=== PATIENT | male | born 1965 | race Caucasian/White ===

== ENCOUNTER 2018-02-25 14:37 | Outpatient (CLI) | payer BC, SELFPAY ==
--- NOTE | 2018-02-25 14:52 | DI.REPORT_ITS ---
SYMPTOMS/DIAGNOSIS: TWISTING INJURY IN 2012, POSSIBLE OLD LABRUM TEAR, ? SEVERE ARTHRITIS, M16.12-DEGENERATIVE TEAR OF LEFT ACETABULAR LABRUM LEFT HIP AND AP PELVIS: Two views. No priors. There is mild sclerosis and spurring of the acetabulum. The left hip joint is otherwise well maintained. The sacroiliac joints and symphysis pubis are unremarkable, as is the right hip. The soft tissues are unremarkable. The bones are normally mineralized. IMPRESSION: Mild degenerative changes of the left hip.
== END 2018-02-25 14:38 ==
PROVIDERS: PCP Family Medicine; Visit Provider Family Medicine
DX: M16.12 Unilateral primary osteoarthritis, left hip (principal)
CPT/HCPCS: 73502

== ENCOUNTER 2018-02-26 18:20 | Outpatient (CLI) | payer BC, SELFPAY ==
[2018-02-26 16:38] LABS: BUN 11 mg/dL (7-18); CREATININE 1.06 mg/dL (0.70-1.30); Calcium 8.9 mg/dL (8.5-10.1); Cholesterol 212 mg/dL (50-200); Glucose 82 mg/dL (70-100); Triglyceride 90 mg/dL (30-150)
[2018-02-26 16:39] LABS: ALT 31 U/L (12-78); AST 23 U/L (15-37); Alkaline Phosphatase 92 U/L (46-116); Anion Gap 5.5 mmol/L (3-11); Bilirubin, Total 0.7 mg/dL (0.2-1.0); CO2 31.5 mmol/L (21.0-32.0); Chloride 105 mmol/L (98-107); HDL Cholesterol 74 mg/dL (40-60); LDL CHOLESTEROL 125 mg/dL (<100); Potassium 4.1 mmol/L (3.5-5.1); Sodium 142 mmol/L (136-145); Total Protein 7.1 g/dL (6.4-8.2)
[2018-02-28 11:42] LABS: Hepatitis C Ab w Rflx HCV PCR Negative (NEGAT)
[2018-02-28 11:47] LABS: HIV-1/2 Ag & Ab Screen Negative (NEGAT)
[2018-02-28 12:56] LABS: Syphilis Serology (RPR) Negative (Negative)
== END 2018-02-26 18:21 ==
PROVIDERS: PCP Family Medicine; Visit Provider Family Medicine
DX: Z13.220 Encounter for screening for lipoid disorders (principal); Z13.228 Encounter for screening for other metabolic disorders; Z11.3 Encounter for screening for infections with a predominantly sexual mode of transmission; Z11.4 Encounter for screening for human immunodeficiency virus [HIV]; Z11.59 Encounter for screening for other viral diseases
CPT/HCPCS: 80053; 80061; 83721; 86803; 87389; 86592

== ENCOUNTER 2018-09-14 09:15 | Outpatient (CLI) | payer BC, SELFPAY ==
--- NOTE | 2018-09-14 11:05 | DI.RAD_ITS ---
SYMPTOMS/DIAGNOSIS: MID BACK STIFFNESS, ? CRYPTOGENIC FRACTURE, THORACIC BACK PAIN, M54.6 THORACIC SPINE: AP and lateral views. No priors. There is normal alignment of the thoracic spine. No acute fractures or subluxations are seen. Mild to moderate degenerative changes are seen in the thoracic spine. The paraspinal lines are intact. IMPRESSION: No acute fracture or subluxation of the thoracic spine.
== END 2018-09-14 09:35 ==
PROVIDERS: PCP Family Medicine; Visit Provider Family Medicine
DX: M54.6 Pain in thoracic spine (principal)
CPT/HCPCS: 72072

== ENCOUNTER 2020-03-21 09:27 | Outpatient (CLI) | payer MEDICAID, SELFPAY ==
--- NOTE | 2020-03-21 08:45 | DI.RAD_ITS ---
EXAM: XR HIP LT COMPLETE AP PELVIS CLINICAL HISTORY: L hip pain. TECHNIQUE: 2D digital imaging was performed. COMPARISON: No exams were available for comparison FINDINGS: BONES: No acute fracture is present. No bony destructive lesion is seen. JOINTS: No dislocation present. No significant degenerative changes are present. Sacroiliac joints a nd symphysis pubis are unremarkable. SOFT TISSUE: Normal. IMPRESSION: Unremarkable radiographs of the left hip. Unremarkable radiographs of the pelvis DATA REPOSITORY: RADIATION DOSE DELIVERED:
== END 2020-03-21 09:47 ==
PROVIDERS: PCP Family Medicine; Referring Provider Family Medicine; Visit Provider Physician Assistant
DX: M25.552 Pain in left hip (principal)
CPT/HCPCS: 73502

== ENCOUNTER 2020-03-28 02:39 | Outpatient (CLI) | payer MEDICAID, SELFPAY ==
--- NOTE | 2020-03-28 07:00 | DI.MRI_ITS ---
EXAM: MR LOWER JOINT LT WO CLINICAL HISTORY: LT HIP PAIN,S73.192A,LABRAL TEAR LT HIP JOINT,SPRAIN LT HIP. TECHNIQUE: Multiplanar multisequence MRI was performed. COMPARISON: CR XR HIP LT COMPLETE AP PELVIS from 03/21/2020 FINDINGS: There is minimal high signal in both superior acetabula. The marrow signal is otherwise normal. No joint effusion is seen. On the coronal images of the left hip, a linear high signal defect is visibl e in the superior labrum, consistent with tear. The SI joints are unremarkable. The bladder and pro state are unremarkable. The musculature is symmetric. No tendon abnormalities are seen. IMPRESSION: Linear tear of the superior left labrum. DATA REPOSITORY:
== END 2020-03-28 02:59 ==
PROVIDERS: PCP Family Medicine; Visit Provider Student in an Organized Health Care Education/Training Program
DX: S73.192A Other sprain of left hip, initial encounter (principal)
CPT/HCPCS: 73721